=== PATIENT | female | born 1970 | race Caucasian/White ===

== ENCOUNTER → 2016-12-17 | Outpatient (CLI) | payer OTHER, MEDICARE ==
[~2016-12-17] MED LIST: CYMBALTA60 MG PO; ELMIRON100 MG PO; LIPITOR40 M1 PO; LORTAB 5/500 501 TAB PO; MORPHINE SULFAT15 M2 PO; PROZAC20 MG PO; TRAZODONE 50MG50 MG PO
[2016-12-17 09:48] LABS: URINE BILIRUBIN - DIPSTICK NEGATIVE (NEG); URINE BLOOD NEGATIVE (NEG)
[2016-12-17 10:03] LABS: BUN 14 mg/dL (7-18)
[2016-12-17 10:05] LABS: GFR (ESTIMATED) 90 ML/MIN (59-)
[2016-12-18 09:42] LABS: Creatinine, Urine 200.1 mg/dL (Not Estab.); Microalbumin, Urine 24.2 ug/mL (Not Estab.)
--- NOTE | 2016-12-27 08:03 | RADIOLOGY REPORT PS360 ---
Bilateral DIG MAMM-SCREEN IMPLANT W/CAD Bryn technique ORDERING PHYSICIAN : Joel Gaston MD PATIENT AGE: 46 years GENDER: Female INDICATION: [id number]. Taking female hormones past year. Bilateral implants. TECHNIQUE: Bryn techniqueCC and MLO images were obtained of tissue overlying the breast implant as well as a segment of images including the breast implant. R2 CAD reviewed. FINDINGS: Moderate breast density Breast implants limit visualization breast tissue and limited mammography LEFT BREAST: An area of focal increased density at the 6 o'clock position left breast. Labeled X. More evident than on prior studies but could merely be a summation shadow of parenchyma. I would suggest conscious spot views to include rolled cc views and 90 degree spot to further evaluate. Ultrasound left breast also suggested. RIGHT BREAST: The small focal area of density deep breast on cc view likely towards 6:00) appears to be similar to old film screen exam November 2009. But was not seen on 2011 Suggest conscious CC spot & possibly rolled cc views along with ultrasound of right breast when patient returns --------IMPRESSION: Bilateral breast implants LEFT BREAST: . Small focal area of increased density seen at 6:00. May merely be overlapping summation shadow but warrant spot views and ultrasound This area is primarily target when patient returns RIGHT BREAST . Small area of density deep right breast on cc view by far most likely summation shadow, but would also benefit from a cc spot views, & ultrasound right breast when patient returns. BI-RADS CATEGORY: 0_Incomplete: Need additional imaging RECOMMENDED FOLLOWUP: ADD ADDITIONAL IMAGING Bilateral Spot views are most important on the left. Bilateral breast ultrasound (A letter has been sent to the patient regarding results of the study.)
== END ==
LOC: RAD 09:03
PROVIDERS: Family Medicine
DX: Z12.31 Encounter for screening mammogram for malignant neoplasm of breast (principal); I10 Essential (primary) hypertension
CPT/HCPCS: G0202

== ENCOUNTER → 2017-01-10 | Outpatient (CLI) | payer OTHER ==
--- NOTE | 2017-01-16 15:24 | RADIOLOGY REPORT PS360 ---
DIG MAMM- DAVID ADD VIEWS W/CAD, US BREAST-RT COMPLETE W/AXILLA, US BREAST-LT COMPLETE W/AXILLA COMPARISON: Mammogram of 12/17/2016 INDICATION: Follow-up abnormal mammogram ORDERING PHYSICIAN: Joel Gaston MD PATIENT AGE: 46 years TECHNIQUE: Bilateral spot compression views bilateral breast ultrasound FINDINGS: Right breast: The asymmetric density in the central aspect of the right breast appear to compress out as fibroglandular tissue. No discrete mass or malignant appearing microcalcification is evident.. Right breast ultrasound: There is a 4 mm cyst at 12:00 and 4 mm cyst at 10:00 along scattered fibrocystic changes. Left breast: The asymmetric density in the retroareolar region does appear to compress out as fibroglandular tissue. No discrete mass or malignant appearing microcalcification. Left breast ultrasound: 8 mm complex cyst at 2:00. 5 mm cyst at 4:00. 6 x 2 mm complex cyst at 5:00. 6 x 2 mm cyst at 11:00. IMPRESSION: Benign findings, no evidence of malignancy BI-RADS CATEGORY: 2_Benign RECOMMENDED FOLLOWUP: Screening mammogram November 2017. Correlation with physical exam is required in this patient with dense breast tissue. Negative mammogram and negative ultrasound does not exclude the possibility of malignancy. A palpable nodular should be managed on clinical basis. (A letter has been sent to the patient regarding results of the study.)
== END ==
LOC: RAD 13:27
DX: R92.2 Inconclusive mammogram (principal)
CPT/HCPCS: G0204